=== PATIENT | female | born 1975 | race Caucasian/White ===

== ENCOUNTER 2016-07-11 03:38 | Emergency (ER) | payer OTHER ==
--- NOTE | ~2016-07-11 | EKG ---
PATIENT: SAMIA GARCIA UNIT #: [id number] Ventricular Rate: 105 BPM Atrial Rate: 105 BPM P-R Interval: 128 ms QRS Duration: 84 ms Q-T Interval: 354 ms QTC Calculation(Bezet): 467 ms P [place]: 61 degrees Calculated R [place]: 31 degrees Calculated T [place]: 55 degrees Diagnosis Line: Sinus tachycardia Diagnosis Line: Otherwise normal ECG Diagnosis Line: No previous ECGs available Diagnosis Line: Confirmed by GERA ORDAZ MD ([id number]) on 07/12/2016 Diagnosis Line: 10:35:24 AM INTERPRETING MD: ORLIN DAWN
--- NOTE | ~2016-07-11 | CR72 ---
[facility] A Service of [facility] & [facility] RADIOLOGY TEXT RESULTS PATIENT: SAMIA GARCIA LOCATION: [facility] : 75 UNIT #: [id number] AGE: [address]: Luli Avina APRN SEX: F ORDER DR: [id number] [facility] [address] [place], [place] [address] [id number] MR#: [id number] Acc #: [id number] NAME: SAMIA GARCIA : 1975 SEX: F STUDY DATE/TIME: 07/11/2016 04:19 UNIT: [facility] ROOM: STUDY DESCRIPTION: CR Chest Single View Portable Attending Physician: Luli Avina A.P.R.N. Ordering Physician: Luli Avina A.P.R.N. Primary Care Physician: Johnathon CastilloPAlejandroRRico MEDICAL IMAGING REPORT This report is preliminary unless electronic signature is present EXAM Portable chest 07/11/2016 0419 hours INDICATION Shortness of air with anxiety, dizziness and weakness tonight. COMPARISON 04/14/2016. FINDINGS A single AP portable view of the chest shows both lungs to be clear. The heart is normal in size. The mediastinal contour is normal. No significant bone abnormalities are seen. IMPRESSION Normal portable chest. Dictated by... Teddy Berrios Jr., M.D. THIS IS AN ELECTRONICALLY VERIFIED REPORT Teddy Berrios Jr., M.D. at 07/12/2016 6:00 AM RANJANA/sanjuanita TD: 07/11/2016 06:24 JOB #: [id number] MEDICAL IMAGING REPORT Page 1 of 1 COPY
[~2016-07-11 03:38] MED LIST: BACITRACIN15 GM TP; BACTRIM DS TABL1 TA2 PO; CATAPRES0.1 M1 PO; CIPRO250 MG PO; CLINDAMYCIN HC300 MG PO; CLONIDINE HCL0.1 MG PO; FLEXERIL10 MG PO; GABAPENTIN800 MG PO; KEFLEX500 M1 PO; KLONOPIN PO; LANSOPRAZOLE30 MG PO; LASIX20 MG PO; MICRO-K10 MEQ PO; NEURONTIN800 MG PO; NORVASC PO; PERCOCET5/325 PO; PROZAC40 MG PO; SUMATRIPTAN SUC25 MG PO; TRAZODONE HCL100 MG PO; TYLOX1 CAP 5/50 DOB
== END 2016-07-11 04:55 | disposition left against medical advice (07) ==
LOC: CED 03:38
DX: Z76.0 Encounter for issue of repeat prescription (principal); F19.10 Other psychoactive substance abuse, uncomplicated; J44.9 Chronic obstructive pulmonary disease, unspecified; K21.9 Gastro-esophageal reflux disease without esophagitis; F31.9 Bipolar disorder, unspecified; F41.0 Panic disorder [episodic paroxysmal anxiety]; Z98.51 Tubal ligation status; F17.210 Nicotine dependence, cigarettes, uncomplicated; Z79.899 Other long term (current) drug therapy
CPT/HCPCS: 71010; 82947; 93005; 99283